=== PATIENT | female | born 1965 | race Caucasian/White ===

== ENCOUNTER 2023-06-30 09:55 | Emergency (ER) | payer BC ==
[~2023-06-30] VITALS: Ht 154.9 cm; Wt 65.3 kg
[2023-06-30 10:09] VITALS: BP_SYST 155; PULSE 82; RESP 18; TEMP 97.9; O2SAT 99
[2023-06-30 11:54] LABS: BILIRUBIN,URINE NEGATIVE (NEGATIVE); BLOOD, URINE 1+ (NEGATIVE); CLARITY/URINE CLEAR (CLEAR); GLUCOSE,URINE NEGATIVE (NEGATIVE); KETONES,URINE NEGATIVE (NEGATIVE); LEUKOCYTE ESTERASE ,URINE 1+ (NEGATIVE); NITRITE, URINE NEGATIVE (NEGATIVE); PH,URINE 6.5 (5.0-8.0); PROTEIN URINE NEGATIVE (NEGATIVE); UROBILINOGEN,URINE 0.2 (0.2-1.0)
[2023-06-30 12:01] LABS: COLOR,URINE STRAW (YELLOW)
[2023-06-30 12:18] LABS: BACTERIA,URINE None Seen /HPF (None Seen)
[2023-06-30] MEDS ORDERED: TRAM50TA2 PO (13:30)
[2023-06-30] MEDS ORDERED: NITR-85 PO (13:30)
[2023-06-30] MEDS ORDERED: TAMS-11 PO (13:30)
[2023-06-30 13:53] VITALS: BP_SYST 155; PULSE 82; RESP 18; TEMP 97.9; O2SAT 99
== END 2023-06-30 13:54 | disposition home or self-care (01) ==
LOC: SED 09:55
DX: N20.0 Calculus of kidney (principal); I10 Essential (primary) hypertension; Z79.899 Other long term (current) drug therapy
CPT/HCPCS: 81000; 81001; 81015; 87086; 99284